=== PATIENT | female | born 1990 | race African-American/Black ===

== ENCOUNTER 2017-03-02 15:47 | Emergency (ER) | payer MEDICAID, OTHER ==
[~2017-03-02] VITALS: Ht 162.6 cm; Wt 60.0 kg
[2017-03-02] MEDS ORDERED: SODIUM CHLORIDE 0.9% 1,000 ML IV ONE (20:16)
[2017-03-02] MEDS ORDERED: MORPHINE SULFATE 4 MG/ML CPJ (NOT FOR IM USE) IV ONE (20:30)
[2017-03-02 20:46] VITALS: BP 146/95
[2017-03-02 22:02] LABS: HCG SCREEN NEGATIVE
== END 2017-03-02 22:48 | disposition home or self-care (01) ==
LOC: ER 15:47
DX: M54.2 Cervicalgia (principal); R51 Headache; V89.2XXA Person injured in unspecified motor-vehicle accident, traffic, initial encounter; Y93.89 Activity, other specified; Y92.89 Other specified places as the place of occurrence of the external cause; Y99.8 Other external cause status
CPT/HCPCS: 36415; 70450; 70486; 72125; 84703; 86850; 86900; 86901; 96374; 99285; J2270; J7030